=== PATIENT | female | born 1960 | race African-American/Black ===

== ENCOUNTER 2022-02-05 23:52 | Emergency (ER) | payer MEDICAID, MEDICARE ==
[~2022-02-05] VITALS: Ht 165.1 cm; Wt 80.0 kg
[2022-02-06 04:51] LABS: HEMATOCRIT. 38.8 % (36.0-48.0); HEMOGLOBIN. 12.9 g/dL (12.0-16.0); MEAN CORPUSCULAR HEMOGLOBIN 28.8 pg (28.0-32.0); MEAN CORPUSCULAR VOLUME 86.5 fL (81.0-99.0); MEAN PLATELET VOLUME 8.4 fl (7.4-10.4); PLATELET 261 x1000/uL (130-400); RED BLOOD CELL COUNT 4.48 mill/uL (4.2-5.4); RED CELL DISTRIBUTION WIDTH 12.8 % (11.6-14.6)
[2022-02-06 04:51] LABS: CLARITY URINE CLEAR (CLEAR); COLOR URINE ORANGE (YELLOW); KETONES URINE NEGATIVE (NEGATIVE); LEUKOCYTE ESTERASE URINE 1+ (NEGATIVE); NITRITE URINE NEGATIVE (NEGATIVE); OCCULT BLOOD URINE 3+ (NEGATIVE); PH URINE 6.5 (4.5-8.0); PROTEIN URINE NEGATIVE (NEGATIVE); SPECIFIC GRAVITY URINE 1.017 (1.005-1.030); UROBILINOGEN URINE 0.2 E.U./dL (0.2-1.0)
[2022-02-06 04:57] LABS: CHLORIDE 106 mEq/L (98-107)
[2022-02-06 05:00] LABS: *AMPHETAMINES SCREEN URINE NEGATIVE (NEGATIVE); *BARBITURATES SCREEN URINE NEGATIVE (NEGATIVE); *BENZODIAZEPINES SCREEN URINE NEGATIVE (NEGATIVE); *COCAINE SCREEN URINE NEGATIVE (NEGATIVE); CANNABINOID URINE SCREEN NEGATIVE (NEGATIVE); METHADONE URINE SCREEN NEGATIVE (NEGATIVE); OPIATES URINE SCREEN NEGATIVE (NEGATIVE); PHENCYCLIDINE URINE SCREEN NEGATIVE (NEGATIVE)
[2022-02-06 05:02] LABS: ETHANOL BLOOD < 10 mg/dL
[2022-02-06 05:17] LABS: PLATELET ESTIMATE NORMAL
[2022-02-06 06:34] VITALS: BP 138/88
[2022-02-06] MEDS ORDERED: RISP1TAB97 MT (13:40)
[2022-02-06] MEDS ORDERED: CEPH500T MT (13:41)
== END 2022-02-06 14:40 | disposition home or self-care (01) ==
LOC: ER 23:52
DX: L03.116 Cellulitis of left lower limb (principal); L03.115 Cellulitis of right lower limb; F31.9 Bipolar disorder, unspecified; Z98.890 Other specified postprocedural states
CPT/HCPCS: 36415; 71045; 80048; 80305; 80307; 80320; 80329; 81003; 81025; 85025; 93970; 99285; G0480

== ENCOUNTER 2024-07-16 14:07 | Emergency (ER) | payer MEDICAID, OTHER ==
[~2024-07-16] VITALS: Ht 175.3 cm; Wt 80.0 kg
[~2024-07-16 14:07] MED LIST: CEPH500T MT; RISP-28 MT
[2024-07-16 14:11] VITALS: BP 175/70; PULSE 100; RESP 16; O2SAT 99
[2024-07-16] MEDS ORDERED: TOPUD MT (17:53)
[2024-07-16] MEDS ORDERED: CEPH500T MT (17:53)
[2024-07-16] MEDS ORDERED: IBUP-2437 MT (17:53)
[2024-07-16 18:36] VITALS: TEMP 98.5
[2024-07-16] MEDS: ACETAMINOPHEN 500MG TABLET PO NR (18:36)
== END 2024-07-16 18:46 | disposition home or self-care (01) ==
LOC: ER 14:23
DX: S02.85XA Fracture of orbit, unspecified, initial encounter for closed fracture (principal); S01.81XA Laceration without foreign body of other part of head, initial encounter; I10 Essential (primary) hypertension; F31.9 Bipolar disorder, unspecified; Z98.890 Other specified postprocedural states; Y08.89XA Assault by other specified means, initial encounter; Y93.89 Activity, other specified; Y92.89 Other specified places as the place of occurrence of the external cause; Y99.8 Other external cause status
CPT/HCPCS: 70486; 99284